=== PATIENT | male | born 1960 | race Caucasian/White ===

== ENCOUNTER 2018-07-30 14:10 | Emergency (ER) | payer OTHER ==
[2018-07-30 14:30] VITALS: TEMP 98.5
[2018-07-30] MEDS ORDERED: HYDROcodone 10MG/APAP 325MG 1 EA TAB ONE (14:45)
[2018-07-30] MEDS ORDERED: HYDROcodone 10MG/APAP 325MG 1 EA TAB PO ONE (14:46)
--- NOTE | 2018-07-30 15:43 | ED.PDOC ---
History of Present Illness - General Chief Complaint: General Stated Complaint: cramping Time Seen by Provider: 07/30/18 14:14 Source: patient, RN notes reviewed, Vital Signs reviewed - History of Present Illness Initial Comments: c/o cramping in various parts of his body at various times. Can be anywhere from his neck to legs lasting seconds to minutes. Original onset was usually only to the legs some 15 years ago. Says he has seen several doctors for it but the cause is still unknown. Has an event at least every 2 weeks. The frequency has been increasing over the last couple of years. No recent illnesses or trauma. Timing/Duration: other - 2-3 days Improving Factors: other - hot water/showers Worsening Factors: nothing Associated Symptoms: denies symptoms Allergies/Adverse Reactions: Allergies NO KNOWN ALLERGY Allergy (Verified 07/30/18 14:31) Home Medications: Ambulatory Orders Acetaminophen W/ Codeine [Tylenol W/ CODEINE #3] 1 ea PO Q8HRS PRN 5 Days #15 07/30/18 Allopurinol [Zyloprim] 200 mg PO BEDTIME 07/30/18 Aspirin [Aspirin Adult Low Dose] 81 mg PO DAILY 07/30/18 Bupropion HCl [Wellbutrin Xl] 150 mg PO BID 07/30/18 Clopidogrel Bisulfate 75 mg PO DAILY 07/30/18 Diclofenac Sodium [Diclofenac Sodium Dr] 75 mg PO DAILY 07/30/18 Etanercept [Enbrel] 25 mg SC WKLY 07/30/18 Gabapentin 600 mg PO BEDTIME 07/30/18 Isosorbide Mononitrate [Imdur] 30 mg PO DAILY 07/30/18 Melatonin 3 mg PO PRN 07/30/18 Metoprolol Tartrate 07/30/18 Nitroglycerin 0.4 mg Tab [Nitrostat] 1 ea SL PRN 07/30/18 Temazepam 15 mg PO PRN 07/30/18 Tramadol HCl [Ultram] 1 - 2 mg PO PRN 07/30/18 Review of Systems - Review of Systems Constitutional: States: no symptoms reported EENTM: States: no symptoms reported Respiratory: States: no symptoms reported Cardiology: States: no symptoms reported Gastrointestinal/Abdominal: States: no symptoms reported Genitourinary: States: no symptoms reported Musculoskeletal: States: see HPI, muscle pain Skin: States: no symptoms reported Neurological: States: no symptoms reported Hematologic/Lymphatic: States: no symptoms reported Past Medical History (General) - Patient Medical History Hx Stroke: No Hx Cardiac Disorders: Yes Hx Congestive Heart Failure: No Hx Hypertension: Yes Hx Diabetes: No - Vaccination History Hx Influenza Vaccination: No Hx Pneumococcal Vaccination: No - Social History Hx Tobacco Use: No Hx Chewing Tobacco Use: Yes Family Medical History - Family History Father Family History: Unknown Living Status: Unknown Physical Exam - Physical Exam General Appearance: Alert, Comfortable, No apparent distress Ears, Nose, Throat: normal ENT inspection Neck: full range of motion, supple, normal inspection Respiratory: normal breath sounds, no respiratory distress Cardiovascular/Chest: regular rate, rhythm, no edema Gastrointestinal/Abdominal: non tender, soft, no organomegaly Back Exam: normal inspection, no vertebral tenderness Extremity: normal range of motion, non-tender, normal inspection, no pedal edema Neurologic: alert, normal mood/affect, oriented x 3 Skin Exam: normal color, warm/dry Progress - Progress Progress: 07/30/18 15:55 improved. Reports he has had a h/o HTN. Son is here to pick him up. 07/30/18 15:59 07/30/18 15:59 - Results/Orders Results/Orders: WBC 10 K 4.1 Ca 9 Mg 2.3 Departure - Departure Clinical Impression: General symptom, Cramps, muscle, general Time of Disposition: 15:57 Disposition: Discharge to Home or Self Care Condition: Good Departure Forms: ED Discharge - Pt. Copy, Patient Portal Self Enrollment Instructions: Muscle Spasms (DC) Prescriptions: Acetaminophen W/ Codeine [Tylenol W/ CODEINE #3] 1 ea PO Q8HRS PRN 5 Days #15 PRN Reason: Moderate Pain Home Medications: Ambulatory Orders Acetaminophen W/ Codeine [Tylenol W/ CODEINE #3] 1 ea PO Q8HRS PRN 5 Days #15 07/30/18 Allopurinol [Zyloprim] 200 mg PO BEDTIME 07/30/18 Aspirin [Aspirin Adult Low Dose] 81 mg PO DAILY 07/30/18 Bupropion HCl [Wellbutrin Xl] 150 mg PO BID 07/30/18 Clopidogrel Bisulfate 75 mg PO DAILY 07/30/18 Diclofenac Sodium [Diclofenac Sodium Dr] 75 mg PO DAILY 07/30/18 Etanercept [Enbrel] 25 mg SC WKLY 07/30/18 Gabapentin 600 mg PO BEDTIME 07/30/18 Isosorbide Mononitrate [Imdur] 30 mg PO DAILY 07/30/18 Melatonin 3 mg PO PRN 07/30/18 Metoprolol Tartrate 07/30/18 Nitroglycerin 0.4 mg Tab [Nitrostat] 1 ea SL PRN 07/30/18 Temazepam 15 mg PO PRN 07/30/18 Tramadol HCl [Ultram] 1 - 2 mg PO PRN 07/30/18 Additional Instructions: follow up with your doctor in 3-5 days
[2018-07-30 16:03] VITALS: BP 139/82; O2SAT 95
== END 2018-07-30 16:04 | disposition home or self-care (01) ==
LOC: ER 14:10
DX: R25.2 Cramp and spasm (principal); I10 Essential (primary) hypertension; I51.9 Heart disease, unspecified; Z87.891 Personal history of nicotine dependence; Z79.899 Other long term (current) drug therapy; Z79.82 Long term (current) use of aspirin